=== PATIENT | female | born 1940 | race Caucasian/White ===

== ENCOUNTER 2021-11-06 12:24 | Outpatient (CLI) | payer MEDICARE ==
[2021-11-06 12:46] LABS: BASOPHILS % (AUTO) 0.5 %; EOSINOPHILS % (AUTO) 0.5 %; HCT - HEMATOCRIT 32.7 % (37.0-47.0); HGB - HEMOGLOBIN 10.4 g/dL (12.0-16.0); LYMPHOCYTES # (AUTO) 1.4 10^3/uL (1.5-3.5); MEAN CORPUSCULAR HEMOGLOBIN 29.5 pg (27.0-31.0); MEAN CORPUSCULAR HGB CONC 31.8 g/dL (32.0-36.0); MEAN CORPUSCULAR VOLUME 92.9 fL (81.0-99.0); MONOCYTES # (AUTO) 0.3 10^3/uL (0.0-1.0); MONOCYTES % (AUTO) 5.2 %; NEUTROPHILS # (AUTO) 4.6 10^3/uL (1.5-6.6); NEUTROPHILS % (AUTO) 70.9 %; NRBC ABSOLUTE COUNT (AUTO) 0.03 x10^3/uL; NUCLEATED RED BLOOD CELLS AUTO 0.5 /100WBC; RED BLOOD COUNT 3.52 10^6/uL (4.20-5.40); RED CELL DISTRIBUTION WIDTH 20.9 % (12.0-15.0); WHITE BLOOD COUNT 6.5 x10^3/uL (4.8-10.8)
[2021-11-06 13:38] LABS: PLT - PLATELET COUNT 9 10^3/uL (130-450)
== END 2021-11-06 12:25 | disposition home or self-care (01) ==
LOC: LAB 12:24
DX: D69.6 Thrombocytopenia, unspecified (principal)
CPT/HCPCS: 36415; 85025

== ENCOUNTER 2021-11-11 14:22 | Outpatient (CLI) | payer MEDICARE ==
[2021-11-11 21:08] LABS: BASOPHILS % (AUTO) 0.4 %; EOSINOPHILS % (AUTO) 0.6 %; HCT - HEMATOCRIT 31.1 % (37.0-47.0); HGB - HEMOGLOBIN 9.6 g/dL (12.0-16.0); LYMPHOCYTES % (AUTO) 28.2 %; MEAN CORPUSCULAR HEMOGLOBIN 29.4 pg (27.0-31.0); MEAN CORPUSCULAR HGB CONC 30.9 g/dL (32.0-36.0); MEAN CORPUSCULAR VOLUME 95.1 fL (81.0-99.0); NEUTROPHILS % (AUTO) 64.2 %; RED BLOOD COUNT 3.27 10^6/uL (4.20-5.40); RED CELL DISTRIBUTION WIDTH 21.2 % (12.0-15.0); WHITE BLOOD COUNT 4.9 x10^3/uL (4.8-10.8)
[2021-11-11 21:32] LABS: SLIDE REVIEW? Indicated
[2021-11-11 21:33] LABS: ABNORMAL LYMPHS % (MANUAL) 0 %
[2021-11-11 21:47] LABS: BAND NEUTROPHILS % (MANUAL) 4 %; LYMPHOCYTES # (MANUAL) 1.8 10^3/uL (1.5-3.5); LYMPHOCYTES % (MANUAL) 19 %; MONOCYTES # (MANUAL) 0.2 10^3/uL (0.0-1.0); NEUTROPHILS # (MANUAL) 2.9 10^3/uL (1.5-6.6); NUCLEATED RBC (MANUAL) 1 %; REACTIVE LYMPHS % (MANUAL) 17 %
[2021-11-11 21:48] LABS: DIFFERENTIAL COMMENT MANUAL DIFFERENTIAL; PLATELET ESTIMATE, MANUAL DECREASED (<130,000) (NORMAL); PLATELET MORPHOLOGY NORMAL APPEARANCE (NORMAL); RBC MORPHOLOGY (MULTIPLE) 3+ ANISOCYTOSIS (NORMAL)
[2021-11-11 22:23] LABS: PLT - PLATELET COUNT 7 10^3/uL (130-450)
== END 2021-11-11 14:23 | disposition home or self-care (01) ==
LOC: LAB.S 14:22
PROVIDERS: ATTEND Physician Assistant
DX: D61.818 Other pancytopenia (principal)
CPT/HCPCS: 36415; 85025